=== PATIENT | male | born 1980 | race African-American/Black ===

== ENCOUNTER 2016-06-25 18:21 | Emergency (ER) | payer SELFPAY ==
[~2016-06-25] VITALS: Ht 185.4 cm; Wt 70.0 kg
[2016-06-25 18:23] VITALS: BP 119/67; PULSE 82; RESP 20; TEMP 100; O2SAT 95
[2016-06-25] MEDS ORDERED: SODIUM CHLORIDE 0.9% FLUSH 5 ML FLUSH IVF PRN (18:45)
--- NOTE | 2016-06-25 18:45 | PD ---
HPI Chief Complaint: Cold / Flu Symptoms Time Seen by Provider: 18:35 Travel History International Travel<30 days: No Contact w/Intl Traveler<30days: No Traveled to known affect area: No History of Present Illness HPI 36-year-old male presents via EMS for evaluation of chest pain. Symptoms started 1 hour prior to arrival. Reports that he was lying down with his baby in his chest when he began having aching pain in the middle of his chest that is constant but worse with breathing. He reports that he received 2 baby aspirin as well as sublingual nitroglycerin via EMS which helped some with his discomfort. He denies any shortness of breath, nausea or vomiting, abdominal pain, diaphoresis, calf swelling. He denies any cough or congestion or sneezing or any upper respiratory symptoms at all. His temperature was recorded as 100 but he denies any fevers, chills, myalgias. He has never had this sort of pain before. He denies recent travel, recent surgeries. He endorses tobacco use. No history of diabetes, hypertension, high cholesterol. No known family history of coronary artery disease. He has no other complaints at this time. PFSH Past Medical History Blood Disorders: No Cancer: No Cardiovascular Problems: No Diminished Hearing: No Endocrine: No Gastrointestinal Disorders: No Genitourinary: No Immune Disorder: No Musculoskeletal: No Psychiatric: No Reproductive: No Respiratory: No Influenza Vaccination: No Past Surgical History Surgical History: No Previous Surgery Other Surgery: Yes (DOG BITE REPAIR LEFT LOWER LEG) Social History Alcohol Use: No Tobacco Use: Yes (BLACK AND MILDS 1 PPD) Substance Use: Yes (POT) Allergies-Medications (Allergen,Severity, Reaction): Coded Allergies: No Known Allergies (Verified , 01/27/15) Reported Meds & Prescriptions Reported Meds & Active Scripts Active Review of Systems Except as stated in HPI: all other systems reviewed are Neg Physical Exam Narrative GENERAL: Well-developed well-nourished male in no acute distress. SKIN: Warm and dry. HEAD: Atraumatic. Normocephalic. EYES: Pupils equal and round. No scleral icterus. No injection or drainage. ENT: No nasal bleeding or discharge. Mucous membranes pink and moist. NECK: Trachea midline. No JVD. CARDIOVASCULAR: Regular rate and rhythm. No murmur appreciated. RESPIRATORY: No accessory muscle use. Clear to auscultation. Breath sounds equal bilaterally. GASTROINTESTINAL: Abdomen soft, non-tender, nondistended. Hepatic and splenic margins not palpable. MUSCULOSKELETAL: No obvious deformities. There is no lower extremity edema. NEUROLOGICAL: Awake and alert. No obvious cranial nerve deficits. Motor grossly within normal limits. Normal speech. PSYCHIATRIC: Appropriate mood and affect; insight and judgment normal. Data Data Last Documented VS Vital Signs Date Time Temp Pulse Resp B/P Pulse Ox O2 Delivery O2 Flow Rate FiO2 06/25/16 18:23 100.0 82 20 119/67 95 Room Air Orders Electrocardiogram (06/25/16 18:42) Basic Metabolic Panel (Bmp) (06/25/16 18:42) Ckmb (Isoenzyme) Profile (06/25/16 18:42) Complete Blood Count With Diff (06/25/16 18:42) Magnesium (Mg) (06/25/16 18:42) Troponin I (06/25/16 18:42) Chest, Single Ap (06/25/16 18:42) Ecg Monitoring (06/25/16 18:42) Bilateral Bp Monitoring (06/25/16 18:42) Iv Access Insert/Monitor (06/25/16 18:42) Oximetry (06/25/16 18:42) Oxygen Administration (06/25/16 18:42) Sodium Chloride 0.9% Flush (Ns Flush) (06/25/16 18:45) Influenzae A/B Antigen (06/25/16 18:45) Ceftriaxone Inj (Rocephin Inj) (06/25/16 19:15) Azithromycin Inj (Zithromax Inj) (06/25/16 19:15) Sodium Chlor 0.9% 1000 Ml Inj (Ns 1000 M (06/25/16 19:15) Acetaminophen (Tylenol) (06/25/16 19:15) CKMB (06/25/16 19:05) CKMB% (06/25/16 19:05) Labs Laboratory Tests Test 06/25/16 19:05 White Blood Count 10.1 TH/MM3 Red Blood Count 4.82 MIL/MM3 Hemoglobin 13.2 GM/DL Hematocrit 39.1 % Mean Corpuscular Volume 81.2 FL Mean Corpuscular Hemoglobin 27.4 PG Mean Corpuscular Hemoglobin 33.7 % Concent Red Cell Distribution Width 13.4 % Platelet Count 120 TH/MM3 Mean Platelet Volume 9.0 FL Neutrophils (%) (Auto) 80.0 % Lymphocytes (%) (Auto) 9.3 % Monocytes (%) (Auto) 10.0 % Eosinophils (%) (Auto) 0.3 % Basophils (%) (Auto) 0.4 % Neutrophils # (Auto) 8.1 TH/MM3 Lymphocytes # (Auto) 0.9 TH/MM3 Monocytes # (Auto) 1.0 TH/MM3 Eosinophils # (Auto) 0.0 TH/MM3 Basophils # (Auto) 0.0 TH/MM3 CBC Comment DIFF FINAL Differential Comment Sodium Level 137 MEQ/L Potassium Level 4.1 MEQ/L Chloride Level 101 MEQ/L Carbon Dioxide Level 26.7 MEQ/L Anion Gap 9 MEQ/L Blood Urea Nitrogen 15 MG/DL Creatinine 1.10 MG/DL Estimat Glomerular Filtration 92 ML/MIN Rate Random Glucose 88 MG/DL Calcium Level 8.7 MG/DL Magnesium Level 1.8 MG/DL Total Creatine Kinase 218 U/L Creatine Kinase MB 0.8 NG/ML Troponin I LESS THAN 0.02 NG/ML MDM Medical Decision Making Medical Screen Exam Complete: Yes Emergency Medical Condition: Yes Medical Record Reviewed: Yes Differential Diagnosis 36-year-old male with pleuritic substernal chest pain for 1 hour. Differential diagnosis includes pleurisy, pericarditis, myocarditis, endocarditis, acute coronary syndrome, spontaneous pneumothorax, pulmonary embolism, costochondritis Narrative Course 36-year-old male presents with pleuritic substernal chest pain for 1 hour, mildly improved after the administration of 2 aspirin and 1 spray of nitroglycerin via EMS. His vital signs are recorded as a pulse oximetry of 95% and a temperature of 100. He is not tachycardic. He denies any fevers or chills or recent illness at home. Place for basic lab work, EKG, d-dimer, chest x-ray. The patient will be signed out to the oncoming provider at the end of my shift pending all of these results for ultimate disposition. Vitaliy Russo Jun 25, 2016 18:45
--- NOTE | 2016-06-25 19:00 | RADRPT ---
EXAM DATE/TIME: 06/25/2016 18:52 [facility] COMPARISON: No previous studies available for comparison. INDICATIONS : Chest pain. MEDICAL HISTORY : None. SURGICAL HISTORY : None. ENCOUNTER: Initial ACUITY: 1 day PAIN SCORE: 5/10 LOCATION: Bilateral chest FINDINGS: A single view of the chest demonstrates left basilar density. Right lung clear. Heart normal in size. The cardiomediastinal contours are unremarkable. Osseous structures are intact. CONCLUSION: 1. Left basilar infiltrate. Recommend treatment and follow up to resolution. Kevin Yarbrough MD on June 25, 2016 at 18:58 Board Certified Radiologist. This report was verified electronically.
[2016-06-25] MEDS ORDERED: SODIUM CHLOR 0.9% 1000 ML INJ 1,000 ML IV ONE (19:15)
[2016-06-25] MEDS ORDERED: cefTRIAXone INJ 1,000 MG in SODIUM CHLORIDE 0.9% INJ 100 ML IV ONE (19:15)
[2016-06-25] MEDS ORDERED: AZITHROMYCIN INJ 500 MG in SODIUM CHLOR 0.9% 250 ML INJ 250 ML IV ONE (19:15)
[2016-06-25] MEDS ORDERED: ACETAMINOPHEN 325 MG TAB PO ONE (19:15)
[2016-06-25 19:30] LABS: AUTOMATED NEUTROPHIL # 8.1 TH/MM3 (1.8-7.7); BASOPHIL % 0.4 % (0.0-2.0); EOSINOPHIL % 0.3 % (0.0-4.0); HEMATOCRIT 39.1 % (39.0-51.0); HEMO FLAGS DIFF FINAL; LYMPH % 9.3 % (9.0-44.0); LYMPHOCYTE # 0.9 TH/MM3 (1.0-4.8); MEAN CELL VOLUME 81.2 FL (80.0-100.0); MEAN CORPUSCULAR HEMOGLOBIN 27.4 PG (27.0-34.0); MEAN CORPUSCULAR HGB CONC 33.7 % (32.0-36.0); PLATELET COUNT 120 TH/MM3 (150-450); RED BLOOD COUNT 4.82 MIL/MM3 (4.50-5.90); RED CELL DISTRIBUTION WIDTH 13.4 % (11.6-17.2); WHITE BLOOD COUNT 10.1 TH/MM3 (4.0-11.0)
[2016-06-25 19:44] LABS: ANION GAP 9 MEQ/L (5-15); BICARBONATE 26.7 MEQ/L (21.0-32.0); BLOOD UREA NITROGEN 15 MG/DL (7-18); CHLORIDE 101 MEQ/L (98-107); GLOMERULAR FILTRATION RATE 92 ML/MIN (>89); MAGNESIUM 1.8 MG/DL (1.5-2.5); POTASSIUM 4.1 MEQ/L (3.5-5.1); SODIUM (NA) 137 MEQ/L (136-145)
[2016-06-25 19:48] LABS: CREATINE KINASE 218 U/L (39-308)
[2016-06-25 20:00] LABS: CKMB 0.8 NG/ML (0.5-3.6)
--- NOTE | 2016-06-26 03:08 | PD ---
Physical Exam Time Seen by Provider: 03:06 Narrative Please refer to previous providers documentation for details surrounding the patient's current visit. Data Data Last Documented VS Vital Signs Date Time Temp Pulse Resp B/P Pulse Ox O2 Delivery O2 Flow Rate FiO2 06/25/16 18:23 100.0 82 20 119/67 95 Room Air Orders Electrocardiogram (06/25/16 18:42) Basic Metabolic Panel (Bmp) (06/25/16 18:42) Ckmb (Isoenzyme) Profile (06/25/16 18:42) Complete Blood Count With Diff (06/25/16 18:42) Magnesium (Mg) (06/25/16 18:42) Troponin I (06/25/16 18:42) Chest, Single Ap (06/25/16 18:42) Ecg Monitoring (06/25/16 18:42) Bilateral Bp Monitoring (06/25/16 18:42) Iv Access Insert/Monitor (06/25/16 18:42) Oximetry (06/25/16 18:42) Oxygen Administration (06/25/16 18:42) Sodium Chloride 0.9% Flush (Ns Flush) (06/25/16 18:45) Influenzae A/B Antigen (06/25/16 18:45) Ceftriaxone Inj (Rocephin Inj) (06/25/16 19:15) Azithromycin Inj (Zithromax Inj) (06/25/16 19:15) Sodium Chlor 0.9% 1000 Ml Inj (Ns 1000 M (06/25/16 19:15) Acetaminophen (Tylenol) (06/25/16 19:15) CKMB (06/25/16 19:05) CKMB% (06/25/16 19:05) Labs Laboratory Tests Test 06/25/16 19:05 White Blood Count 10.1 TH/MM3 Red Blood Count 4.82 MIL/MM3 Hemoglobin 13.2 GM/DL Hematocrit 39.1 % Mean Corpuscular Volume 81.2 FL Mean Corpuscular Hemoglobin 27.4 PG Mean Corpuscular Hemoglobin 33.7 % Concent Red Cell Distribution Width 13.4 % Platelet Count 120 TH/MM3 Mean Platelet Volume 9.0 FL Neutrophils (%) (Auto) 80.0 % Lymphocytes (%) (Auto) 9.3 % Monocytes (%) (Auto) 10.0 % Eosinophils (%) (Auto) 0.3 % Basophils (%) (Auto) 0.4 % Neutrophils # (Auto) 8.1 TH/MM3 Lymphocytes # (Auto) 0.9 TH/MM3 Monocytes # (Auto) 1.0 TH/MM3 Eosinophils # (Auto) 0.0 TH/MM3 Basophils # (Auto) 0.0 TH/MM3 CBC Comment DIFF FINAL Differential Comment Sodium Level 137 MEQ/L Potassium Level 4.1 MEQ/L Chloride Level 101 MEQ/L Carbon Dioxide Level 26.7 MEQ/L Anion Gap 9 MEQ/L Blood Urea Nitrogen 15 MG/DL Creatinine 1.10 MG/DL Estimat Glomerular Filtration 92 ML/MIN Rate Random Glucose 88 MG/DL Calcium Level 8.7 MG/DL Magnesium Level 1.8 MG/DL Total Creatine Kinase 218 U/L Creatine Kinase MB 0.8 NG/ML Troponin I LESS THAN 0.02 NG/ML [facility] Medical Record Reviewed: Yes Supervised Visit with ARPAN: No Narrative Course I assumed care of the patient while imaging studies and lab work is pending. Chest x-ray does show a left lower lobe infiltrate. I have added Rocephin and azithromycin IV to the patient's medications. I am informed by nursing staff that the patient does not want medication, he does not want anything else, he would like to leave at this moment. I will discuss with the patient the findings of his x-ray that he does have pneumonia and if he would wait we could get him his antibiotics. He states that he does not want to wait another second. I advised that if he did leave that his condition can only worsened, we may be missing something else going on, this could result in him becoming very ill and even result in . He is told me that he did not care and that he wanted to go. Patient will be leaving AGAINST MEDICAL ADVICE at this time. Diagnosis Primary Impression: Pneumonia Qualified Code: J18.1 - Pneumonia of left lower lobe due to infectious organism Additional Impression: Left against medical advice Patient Instructions: General Instructions Departure Forms: Tests/Procedures Disposition: AGAINST MEDICAL ADVICE Condition: Stable Mehreen HernandezP Jun 26, 2016 03:08
--- NOTE | 2016-06-26 12:01 | EKG ---
Date Performed: 06/25/2016 Time Performed: 18:55:28 PTAGE: 36 years EKG: Normal Sinus rhythm Normal EKG NO PREVIOUS TRACING DOCTOR: Juan Beth Interpretating Date/Time 06/26/2016 12:01:13
== END 2016-06-25 19:35 | disposition left against medical advice (07) ==
LOC: NEPB 18:21
DX: J18.9 Pneumonia, unspecified organism (principal); F17.290 Nicotine dependence, other tobacco product, uncomplicated
CPT/HCPCS: 71010; 80048; 82550; 82552; 83735; 84484; 85025; 93005